=== PATIENT | male | born 1980 | race Caucasian/White ===

== ENCOUNTER 2018-06-16 01:41 | Observation (INO) ==
--- NOTE | 2018-06-16 05:42 | Emergency Department Note ---
Disposition Clinical Impression: Abdominal pain Qualifiers: Abdominal location: generalized Qualified Code(s): R10.84 - Generalized abdominal pain Disposition: Still a Patient Condition: Good Referrals: NONE,PCP [Primary Care Provider] - Alessandra Taylor [Family Provider] - Forms: ED Satisfaction Letter, Work/School Release Abdominal Pain HPI - General Chief Complaint: ED Abdominal Pain Stated Complaint: abd pain nausea Time Seen by Provider: 06/16/18 05:23 Source: patient, family - History of Present Illness HPI Narrative: This 37 years old male presented to ED for diffuse pain abdomen and low grade fever with chills since yesterday. The patient describes belly pain as a dull type of pain, 4/10, diffuse but more prominent i supra-pubic area , not associated with diarrhoea, nausea- vomiting,gurgling sound, rash, urinary frequency- dysuria. He states that the abdominal pain has been much better than yesterday and temperature is normal now.He denies any chest pain , SOB, calf pain. Pt Subjective Complaint: abdominal pain Onset (ago): day(s) Consistency: intermittent Location: suprapubic Pain Severity: mild Pain Scale: 4 Quality: aching Radiation: suprapubic Improves with: nothing Worsens with: nothing Associated symptoms: Reports: denies other symptoms, fever, chills, constipation. Denies: nausea, vomiting, diarrhea, dysuria, hematemesis, hematochezia Treatments prior to arrival: none - Related Data Allergies Allergy/AdvReac Type Severity Reaction Status Date / Time No Known Allergies Allergy Verified 06/16/18 01:45 Constitutional: Reports: fever, chills. Denies: weakness, weight change Eyes: Denies: eye pain ENT ED: Reports: ear pain Cardiovascular: Denies: chest pain, palpitations, dyspnea on exertion Respiratory: Denies: cough, dyspnea, wheezes Gastrointestinal: Reports: abdominal pain, constipation. Denies: nausea, vomiting, diarrhea, hematemesis, melena Genitourinary: Denies: urgency, dysuria, frequency Musculoskeletal: Denies: back pain, neck pain Integumentary: Denies: rash Neurological: Denies: headache, weakness, numbness Psychiatric: Denies: anxiety, depression Endocrine: Denies: fatigue Hematological/Lymphatic: Denies: easy bruising Allergic/Immunologic: Denies: urticaria Abdominal Pain PMH - Past Medical History Medical history: Reports: no medical history Male Surgical History: Reports: no surgical history Psychiatric history: Reports: no psych history - Social History Smoking status: Current every day smoker Alcohol use: Reports: occasionally Drug use: Reports: none Physical Exam - General Limitations: no limitations General appearance: alert, in no apparent distress - Head Head exam: atraumatic, normocephalic - Eye Eye exam: Present: PERRL, EOMI - ENT ENT exam: normal oropharynx, mucous membranes dry - Neck Neck exam: Present: normal inspection - Respiratory Respiratory exam: Present: normal lung sounds bilaterally. Absent: respiratory distress, wheezes, stridor, prolonged expiratory phase - Cardiovascular Cardiovascular exam: Present: normal rhythm, tachycardia, normal heart sounds, + S1, +S2. Absent: bradycardia - Abdominal Exam Abdominal exam: Present: soft, tenderness, normal bowel sounds, other (Minimal suprapubic tenderness +nt). Absent: distention, guarding - Extremities Exam Extremities exam: Absent: tenderness, pedal edema, joint swelling, calf tenderness - Back Exam Back exam: Present: normal inspection. Absent: CVA tenderness (R), CVA tenderness (L) - Neurological Exam Neurological exam: Present: alert, oriented X3 - Psychiatric Psychiatric exam: Present: normal mood. Absent: depressed, anxious - Skin Skin exam: Present: warm, intact Course Course Narrative: The patient has low grade fever and pain abdomen especially supra-pubic area , but denies any urinary symptoms.i.e Dysuria, frequency Vital Signs Temperature 102.9 F H 06/16/18 01:46 Pulse Rate 108 06/16/18 01:46 Respiratory Rate 16 06/16/18 01:46 Blood Pressure 95/55 06/16/18 01:46 O2 Sat by Pulse Oximetry 95 06/16/18 01:46 Temperature 98.8 F 06/16/18 03:28 Pulse Rate 108 06/16/18 01:46 Respiratory Rate 16 06/16/18 01:46 Blood Pressure 95/55 06/16/18 01:46 O2 Sat by Pulse Oximetry 95 06/16/18 01:46 Oxygen Delivery Oxygen Delivery Room Air Abdominal Pain - Lab Data Result diagrams: 06/16/18 05:55 06/16/18 05:55 Lab Results 06/16/18 06/16/18 06/16/18 Range/Units 05:55 05:55 06:06 WBC 23.9 H (4.3-11.1) K/mcL RBC 5.82 H (4.19-5.50) M/mcL Hgb 16.6 (12.9-16.9) g/dL Hct 50.1 (37.5-50.1) % MCV 86.1 (83.0-100.0) fL MCH 28.5 (28.0-33.3) pg MCHC 33.1 (31.6-35.5) g/dL RDW 14.6 H (11.5-14.5) % Plt Count 242 (140-400) K/mcL MPV 11.4 (9.4-12.4) fL Sodium 138 (136-145) mEq/L Potassium 3.3 L (3.5-5.1) mEq/L Chloride 104 (98-107) mEq/L Carbon Dioxide 26 (23-29) mEq/L BUN 16 (6-20) mg/dL Creatinine 1.43 H (0.70-1.30) mg/dL Est GFR ( Amer) > 60 (> 60) Est GFR (Non-Af Amer) 56 L (> 60) BUN/Creatinine Ratio 11 (6-26) Glucose 124 H (70-105) mg/dL Calculated Osmolality 289 (280-300) Calcium 9.5 (8.6-10.3) mg/dL Total Bilirubin 1.1 H (0.3-1.0) mg/dL Direct Bilirubin 0.3 H (0.0-0.2) mg/dL Indirect Bilirubin 0.8 (0.0-1.2) mg/dL AST 13 (13-39) Units/L ALT 15 (7-52) Units/L Alkaline Phosphatase 81 (34-104) Units/L Serum Total Protein 6.5 (6.4-8.9) g/dL Albumin 4.2 (3.5-5.7) g/dL Globulin 2.3 L (2.4-3.5) g/dL Albumin/Globulin Ratio 1.8 (1.1-2.2) Lipase 20 (11-82) Units/L Urine Color [place] A (Yellow) Urine Clarity Clear (Clear) Urine pH 6.0 (5.0-8.0) pH Units Ur Specific [place] > 1.030 H (1.010-1.025) Urine Protein 100 H (Neg-Trace) mg/dL Urine Glucose (UA) Normal (Normal) mg/dL Urine Ketones 15 H (Negative) mg/dL Urine Blood Negative (Negative) Urine Nitrite Negative (Negative) Urine Bilirubin Small H (Negative) Urine Urobilinogen Normal (Normal) mg/dL Ur Leukocyte Esterase Small H (Negative) Urine Microscopic RBC 0-3 (0-3) per hpf Urine Microscopic WBC 3-5 H (0-3) per hpf Ur Squamous Epith Cells Few (None-Few) per lpf Urine Bacteria Few (None-Few) per hpf Ur Culture Indicated? YES A (NO)
[2018-06-16 06:36] LABS: Hematocrit 50.1 % (37.5-50.1); Hemoglobin 16.6 g/dL (12.9-16.9); Mean Corpuscular HGB Conc 33.1 g/dL (31.6-35.5); Mean Corpuscular Hemoglobin 28.5 pg (28.0-33.3); Mean Corpuscular Volume 86.1 fL (83.0-100.0); Mean Platelet Volume 11.4 fL (9.4-12.4); Platelet Count 242 K/mcL (140-400); Red Blood Count 5.82 M/mcL (4.19-5.50); Red Cell Distribution Width 14.6 % (11.5-14.5)
[2018-06-16 06:41] LABS: Bilirubin,Urine Small (Negative); Blood,Urine Negative (Negative); Clarity,Urine Clear (Clear); Color,Urine Orange (Yellow); Glucose,Urine (UA) Normal (Normal); Ketones,Urine 15 mg/dL (Negative); Leukocyte Esterase,Urine Small (Negative); Nitrite,Urine Negative (Negative); Protein,Urine 100 mg/dL (Neg-Trace); Specific Gravity,Urine > 1.030 (1.010-1.025); Urobilinogen,Urine Normal (Normal)
[2018-06-16 06:59] LABS: Alanine Aminotransferase 15 Units/L (7-52); Albumin 4.2 g/dL (3.5-5.7); Albumin/Globulin Ratio 1.8 (1.1-2.2); Alkaline Phosphatase 81 Units/L (34-104); Aspartate Amino Transferase 13 Units/L (13-39); BUN/Creatinine Ratio 11 (6-26); Bilirubin,Direct 0.3 mg/dL (0.0-0.2); Bilirubin,Indirect 0.8 mg/dL (0.0-1.2); Bilirubin,Total 1.1 mg/dL (0.3-1.0); Blood Urea Nitrogen 16 mg/dL (6-20); Calcium 9.5 mg/dL (8.6-10.3); Carbon Dioxide 26 mEq/L (23-29); Chloride 104 mEq/L (98-107); Globulin 2.3 g/dL (2.4-3.5); Glucose 124 mg/dL (70-105); Lipase 20 Units/L (11-82); Osmolality,Calculated 289 (280-300); Potassium 3.3 mEq/L (3.5-5.1); Sodium 138 mEq/L (136-145); Total Protein 6.5 g/dL (6.4-8.9); eGFR For Non-African Americans 56 (> 60)
[2018-06-16 07:04] LABS: Squamous Epithelial Cell,Urine Few per lpf (None-Few)
[2018-06-16 07:05] LABS: RBC,Urine 0-3 per hpf (0-3)
[2018-06-16 07:06] LABS: Bacteria,Urine Few per hpf (None-Few)
--- NOTE | 2018-06-16 07:15 | Emergency Department Note ---
Disposition Clinical Impression: Abdominal pain Qualifiers: Abdominal location: generalized Qualified Code(s): R10.84 - Generalized abdominal pain Appendicitis Qualifiers: Appendicitis type: acute appendicitis Acute appendicitis type: unspecified acute appendicitis type Qualified Code(s): K35.80 - Unspecified acute appendicitis Disposition: Admitted As Inpatient Condition: Good Referrals: NONE,PCP [Primary Care Provider] - Alessandra Taylor [Family Provider] - Forms: ED Satisfaction Letter, Work/School Release Time of Disposition: 08:35 General Adult HPI - General Chief complaint: ED Abdominal Pain Stated complaint: abd pain nausea Time Seen by Provider: 06/16/18 05:23 Source: patient, family Limitations: no limitations - History of Present Illness Pain Scale: 4 - Related Data Allergies Allergy/AdvReac Type Severity Reaction Status Date / Time No Known Allergies Allergy Verified 06/16/18 01:45 Constitutional: Reports: fever, chills. Denies: weakness, weight change Eyes: Denies: eye pain ENT ED: Reports: ear pain Cardiovascular: Denies: chest pain, palpitations, dyspnea on exertion Respiratory: Denies: cough, dyspnea, wheezes Gastrointestinal: Reports: abdominal pain, constipation. Denies: nausea, vomiting, diarrhea, hematemesis, melena Genitourinary: Denies: urgency, dysuria, frequency Musculoskeletal: Denies: back pain, neck pain Integumentary: Denies: rash Neurological: Denies: headache, weakness, numbness Psychiatric: Denies: anxiety, depression Endocrine: Denies: fatigue Hematological/Lymphatic: Denies: easy bruising Allergic/Immunologic: Denies: urticaria Past Medical History - Past Medical History Medical history: Reports: no medical history Psychiatric history: Reports: no psych history - Social History Smoking Status: Current every day smoker Smokeless Tobacco Status: Yes Alcohol use: Reports: occasionally Drug use: Reports: none Physical Exam - General Limitations: no limitations General appearance: alert, in no apparent distress Course Vital Signs Temperature 102.9 F H 06/16/18 01:46 Pulse Rate 108 06/16/18 01:46 Respiratory Rate 16 06/16/18 01:46 Blood Pressure 95/55 06/16/18 01:46 O2 Sat by Pulse Oximetry 95 06/16/18 01:46 Temperature 98.8 F 06/16/18 03:28 Pulse Rate 108 10/10/18 01:46 Respiratory Rate 16 06/16/18 01:46 Blood Pressure 95/55 06/16/18 01:46 O2 Sat by Pulse Oximetry 95 06/16/18 01:46 Oxygen Delivery Oxygen Delivery Room Air Medical Decision Making - Lab Data Result diagrams: 06/16/18 05:55 06/16/18 05:55 Lab Results 06/16/18 06/16/18 06/16/18 Range/Units 05:55 05:55 06:06 WBC 23.9 H (4.3-11.1) K/mcL RBC 5.82 H (4.19-5.50) M/mcL Hgb 16.6 (12.9-16.9) g/dL Hct 50.1 (37.5-50.1) % MCV 86.1 (83.0-100.0) fL MCH 28.5 (28.0-33.3) pg MCHC 33.1 (31.6-35.5) g/dL RDW 14.6 H (11.5-14.5) % Plt Count 242 (140-400) K/mcL MPV 11.4 (9.4-12.4) fL Seg Neutrophils % 70.0 % Band Neutrophils % 8.0 H (0-4) % Lymphocytes % 12.0 % Monocytes % 6.0 % Eosinophils % 4.0 % Neutrophils # 18.6 H (1.6-8.9) K/mcL Lymphocytes # 2.9 (0.6-4.6) K/mcL Monocytes # 1.4 H (0.0-1.3) K/mcL Eosinophils # 1.0 H (0.0-0.6) K/mcL Platelet Estimate Normal (Normal) Sodium 138 (136-145) mEq/L Potassium 3.3 L (3.5-5.1) mEq/L Chloride 104 (98-107) mEq/L Carbon Dioxide 26 (23-29) mEq/L BUN 16 (6-20) mg/dL Creatinine 1.43 H (0.70-1.30) mg/dL Est GFR ( Amer) > 60 (> 60) Est GFR (Non-Af Amer) 56 L (> 60) BUN/Creatinine Ratio 11 (6-26) Glucose 124 H (70-105) mg/dL Calculated Osmolality 289 (280-300) Calcium 9.5 (8.6-10.3) mg/dL Total Bilirubin 1.1 H (0.3-1.0) mg/dL Direct Bilirubin 0.3 H (0.0-0.2) mg/dL Indirect Bilirubin 0.8 (0.0-1.2) mg/dL AST 13 (13-39) Units/L ALT 15 (7-52) Units/L Alkaline Phosphatase 81 (34-104) Units/L Serum Total Protein 6.5 (6.4-8.9) g/dL Albumin 4.2 (3.5-5.7) g/dL Globulin 2.3 L (2.4-3.5) g/dL Albumin/Globulin Ratio 1.8 (1.1-2.2) Lipase 20 (11-82) Units/L Urine Color [place] A (Yellow) Urine Clarity Clear (Clear) Urine pH 6.0 (5.0-8.0) pH Units Ur Specific [place] > 1.030 H (1.010-1.025) Urine Protein 100 H (Neg-Trace) mg/dL Urine Glucose (UA) Normal (Normal) mg/dL Urine Ketones 15 H (Negative) mg/dL Urine Blood Negative (Negative) Urine Nitrite Negative (Negative) Urine Bilirubin Small H (Negative) Urine Urobilinogen Normal (Normal) mg/dL Ur Leukocyte Esterase Small H (Negative) Urine Microscopic RBC 0-3 (0-3) per hpf Urine Microscopic WBC 3-5 H (0-3) per hpf Ur Squamous Epith Cells Few (None-Few) per lpf Urine Bacteria Few (None-Few) per hpf Ur Culture Indicated? YES A (NO) Attestation Statement - Attestation Attestation: Care of patient assumed from Dr. Sierra at 7 AM pending labs. Patient sleeping at the time of my exam. He has no focal right lower quadrant tenderness on exam. Labs reviewed by me indicating a leukocytosis and a creatinine of 1.4+. Patient states he cannot tolerate oral intake. We will offer oral fluids. Given his leukocytosis and initial fever upon presentation the patient does meet sepsis criteria. CT abdomen and pelvis ordered to evaluate for acute surgical pathology 08:34: CT results discussed with patient. Concern for acute appendicitis. Plan to discuss this case with the on-call surgeon with impending admission
--- NOTE | 2018-06-16 07:28 | Emergency Department Note ---
Disposition Clinical Impression: Abdominal pain Qualifiers: Abdominal location: generalized Qualified Code(s): R10.84 - Generalized abdominal pain Disposition: Still a Patient Condition: Good Referrals: NONE,PCP [Primary Care Provider] - Alessandra Taylor [Family Provider] - Forms: ED Satisfaction Letter, Work/School Release General Adult HPI - General Chief complaint: ED Abdominal Pain Stated complaint: abd pain nausea Time Seen by Provider: 06/16/18 05:23 Source: patient, family Limitations: no limitations Nursing Notes Reviewed: Yes Vital Signs Reviewed: Yes - History of Present Illness Pain Scale: 4 - Related Data Allergies Allergy/AdvReac Type Severity Reaction Status Date / Time No Known Allergies Allergy Verified 06/16/18 01:45 Constitutional: Reports: fever, chills. Denies: weakness, weight change Eyes: Denies: eye pain ENT ED: Reports: ear pain Cardiovascular: Denies: chest pain, palpitations, dyspnea on exertion Respiratory: Denies: cough, dyspnea, wheezes Gastrointestinal: Reports: abdominal pain, constipation. Denies: nausea, vomiting, diarrhea, hematemesis, melena Genitourinary: Denies: urgency, dysuria, frequency Musculoskeletal: Denies: back pain, neck pain Integumentary: Denies: rash Neurological: Denies: headache, weakness, numbness Psychiatric: Denies: anxiety, depression Endocrine: Denies: fatigue Hematological/Lymphatic: Denies: easy bruising Allergic/Immunologic: Denies: urticaria Past Medical History - Past Medical History Medical history: Reports: no medical history Psychiatric history: Reports: no psych history - Social History Smoking Status: Current every day smoker Smokeless Tobacco Status: Yes Alcohol use: Reports: occasionally Drug use: Reports: none Physical Exam - General Limitations: no limitations General appearance: alert, in no apparent distress Course Vital Signs Temperature 102.9 F H 06/16/18 01:46 Pulse Rate 108 06/16/18 01:46 Respiratory Rate 16 06/16/18 01:46 Blood Pressure 95/55 06/16/18 01:46 O2 Sat by Pulse Oximetry 95 06/16/18 01:46 Temperature 98.8 F 06/16/18 03:28 Pulse Rate 108 06/16/18 01:46 Respiratory Rate 16 06/16/18 01:46 Blood Pressure 95/55 06/16/18 01:46 O2 Sat by Pulse Oximetry 95 06/16/18 01:46 Oxygen Delivery Oxygen Delivery Room Air Medical Decision Making - Lab Data Result diagrams: 06/16/18 05:55 06/16/18 05:55 Lab Results 06/16/18 06/16/18 06/16/18 Range/Units 05:55 05:55 06:06 WBC 23.9 H (4.3-11.1) K/mcL RBC 5.82 H (4.19-5.50) M/mcL Hgb 16.6 (12.9-16.9) g/dL Hct 50.1 (37.5-50.1) % MCV 86.1 (83.0-100.0) fL MCH 28.5 (28.0-33.3) pg MCHC 33.1 (31.6-35.5) g/dL RDW 14.6 H (11.5-14.5) % Plt Count 242 (140-400) K/mcL MPV 11.4 (9.4-12.4) fL Sodium 138 (136-145) mEq/L Potassium 3.3 L (3.5-5.1) mEq/L Chloride 104 (98-107) mEq/L Carbon Dioxide 26 (23-29) mEq/L BUN 16 (6-20) mg/dL Creatinine 1.43 H (0.70-1.30) mg/dL Est GFR ( Amer) > 60 (> 60) Est GFR (Non-Af Amer) 56 L (> 60) BUN/Creatinine Ratio 11 (6-26) Glucose 124 H (70-105) mg/dL Calculated Osmolality 289 (280-300) Calcium 9.5 (8.6-10.3) mg/dL Total Bilirubin 1.1 H (0.3-1.0) mg/dL Direct Bilirubin 0.3 H (0.0-0.2) mg/dL Indirect Bilirubin 0.8 (0.0-1.2) mg/dL AST 13 (13-39) Units/L ALT 15 (7-52) Units/L Alkaline Phosphatase 81 (34-104) Units/L Serum Total Protein 6.5 (6.4-8.9) g/dL Albumin 4.2 (3.5-5.7) g/dL Globulin 2.3 L (2.4-3.5) g/dL Albumin/Globulin Ratio 1.8 (1.1-2.2) Lipase 20 (11-82) Units/L Urine Color [place] A (Yellow) Urine Clarity Clear (Clear) Urine pH 6.0 (5.0-8.0) pH Units Ur Specific [place] > 1.030 H (1.010-1.025) Urine Protein 100 H (Neg-Trace) mg/dL Urine Glucose (UA) Normal (Normal) mg/dL Urine Ketones 15 H (Negative) mg/dL Urine Blood Negative (Negative) Urine Nitrite Negative (Negative) Urine Bilirubin Small H (Negative) Urine Urobilinogen Normal (Normal) mg/dL Ur Leukocyte Esterase Small H (Negative) Urine Microscopic RBC 0-3 (0-3) per hpf Urine Microscopic WBC 3-5 H (0-3) per hpf Ur Squamous Epith Cells Few (None-Few) per lpf Urine Bacteria Few (None-Few) per hpf Ur Culture Indicated? YES A (NO) Attestation Statement - Attestation Attestation: I, Otis Sierra MD, personally evaluated this patient and discussed their management with the resident physician. I reviewed the resident's note and agree with the documented findings, medical decision making, and plan of care. 37-year-old male presents to the emergency department with a complaint of some generalized abdominal pain which started about 24 hours prior to arrival. He did have some nausea and 3 episodes of vomiting earlier yesterday. Also one loose stool. No melena, hematemesis, or hematochezia. No prior abdominal surgeries. No history of abdominal problems in the past. Patient states he did have a similar episode of abdominal discomfort several years ago. No dysuria or hematuria. No increased urinary frequency or flank pain. Tonight patient developed chills and decided to come be evaluated. At time of exam he states that the abdominal pain is much improved but he still feels a little crampy throughout the mid and lower abdomen. On arrival here in the emergency department his initial temp was 102.9. He received acetaminophen 1 g by mouth and repeat temperature later was down to 98.8. On examination patient is a well-developed well-nourished male in no acute distress. He is alert and oriented 3. There is no cyanosis or diaphoresis. Breath sounds are clear and equal bilaterally. Heart regular with a mild tachycardia. Abdomen is soft with increased bowel sounds. There is mild mid lower abdominal tenderness with no guarding or rebound tenderness. No CVA tenderness. No palpable organomegaly or masses. No tympany or distention. At shift change patient is awaiting lab results and is signed out to the oncoming dayshift physician, Dr. Hernandez.
[2018-06-16 07:57] LABS: Lymphocytes # 2.9 K/mcL (0.6-4.6); Monocytes # 1.4 K/mcL (0.0-1.3); Neutrophils # 18.6 K/mcL (1.6-8.9)
[2018-06-16 07:58] LABS: Platelet Estimate Normal (Normal)
[2018-06-16] MEDS ORDERED: cefOXitin 1,000 MG in 0.9 % Sodium Chloride Mini Bag 100 ML IVPB ONE ×2 (08:34→13:22)
[2018-06-16 09:18] LABS: INR 1.1; Prothrombin Time 12.5 Seconds (9.4-12.1)
[2018-06-16] MEDS ORDERED: Naloxone 0.4 MG/ML INJ IVP PRN ×2 (09:18→15:24)
[2018-06-16] MEDS ORDERED: Ondansetron 4 MG/2 ML VIAL IVP PRN ×2 (09:18→15:24)
[2018-06-16] MEDS ORDERED: OXYCODONE Oral CONC 10 MG/0.5 ML ORAL.SYG SL PRN ×2 (09:18→15:24)
[2018-06-16] MEDS ORDERED: Ketorolac 15 MG/ML VIAL IVP PRN (09:18)
--- NOTE | 2018-06-16 09:28 | General Surg History&Physical ---
<Obdulia Ortega - Last Filed: 06/16/18 10:56> Date of Encounter: 06/16/18 Time of Encounter: 09:25 Assessment and Plan (1) Appendicitis Current Visit: Yes Status: Acute WBC 23.[address] showing acute appendicitis without rupture or abscess, appendicothic noted - IVF bolus 500 then maintenance 125 - supportive care and pain management - serial abdominal exams - NPO - IV cefoxitin - consent obtained and questions answered Plan for lap appy with Dr Ashby in next 24-48 hrs The assessment and plan as outlined above was discussed with the patient and/or family members who expressed understanding and agreement. All questions were answered. Qualifiers: Appendicitis type: acute appendicitis Acute appendicitis type: unspecified acute appendicitis type Qualified Code(s): K35.80 - Unspecified acute appendicitis (2) Sepsis Current Visit: Yes Status: Acute SIRs criteria of fever, tachycardia and elevated WBC with two possible sourses in UTi and appendicitis - see above Qualifiers: Sepsis type: sepsis due to unspecified organism Qualified Code(s): A41.9 - Sepsis, unspecified organism (3) UTI (urinary tract infection) Current Visit: Yes Status: Acute UA positive for small leukocyte esterase and WBC; dark orange but no signs of hematuria with no RBS and increased specific gravity - treated with cefoxitin in ED - urine culture pending Qualifiers: Urinary tract infection type: acute cystitis Hematuria presence: without hematuria Qualified Code(s): N30.00 - Acute cystitis without hematuria (4) Tobacco dependence Current Visit: Yes Status: Chronic nicotine patch prn (5) DVT prophylaxis Current Visit: Yes Status: Acute SCDs now, plan for heparin sq starts tomorrow History of Present Illness Chief complaint: abdominal pain HPI: Mr. Lambert is a 37 year old male presented to Ed with 2 days of sharp and cramping abdominal pain with vomiting. His painstarted in epigastric region and migrated to right lower quadrant . He came to Ed after he devloped feeling of fever and chills last night. Asoicated symtpoms of headache and nausa. He has vomitied approximately three times with last yesterday afternoon. He had one episode of diarrhea small volume two days ago with no bowel moment since - he has chronic issues with constipation, no change in stool color. He also reports dark urine with concern to blood but no burning with urination. In ED, vitals T 102.9, HR 108 BP 95/55 and RR 16 95% RA. He was diagnosed with acute appendicitis and UTI - treated with IV cefoxitin. No past medical history - he occasional takes ibuprofen for back pain. He has no family hsitory of cancer in near relative, IBD or IBS. He smokes half pack over 20 yrs. He is unable to estimate his alcohol consumption on weekends perhaps 12-18 bears per week and no drinking on week days. He denies use of indict substances. No past surgical history Past Med Surg Social Fam HX - Past Medical History Medical history: no medical history Psychiatric history: no psych history - Social History Smoking Status: Current every day smoker Smokeless Tobacco Status: Yes Alcohol use: occasionally Drug use: none Medications and Allergies Acetaminophen [Tylenol] 500 mg PO TID PRN 06/16/18 [History] Ibuprofen [Ibu-200] 200 mg PO TID PRN 06/16/18 [History] 3 Allergy/AdvReac Type Severity Reaction Status Date / Time No Known Allergies Allergy Verified 06/16/18 09:07 Review of Systems All systems PM: The remainder of the systems were reviewed and are negative - Constitutional chills, fatigue, fever(s) - Cardiovascular no chest pain, no lightheadedness, no palpitations - Respiratory no cough, no dyspnea, no wheezing - Gastrointestinal abdominal pain, constipation, cramping, diarrhea, nausea, vomiting - Genitourinary hematuria, no dysuria, no urinary frequency - Musculoskeletal back pain (chronic), no muscle weakness, no numbness - Neurological dizziness, headache(s), no syncope - Psychiatric no behavioral changes, no confusion, no memory loss General Surgery Exam Initial Vital Signs Temp Pulse Resp BP Pulse Ox 102.9 F H 108 16 95/55 95 06/16/18 01:46 06/16/18 01:46 06/16/18 01:46 06/16/18 01:46 06/16/18 01:46 - General physical appearance well developed, well nourished, moderate distress - Eyes PERRL, normal ocular movement - ENT normal pinna, normal nares, no hearing loss, dry mucosa - Respiratory normal expansion, normal respiratory effort, clear to auscultation - Cardiovascular Cardiovascular exam: Present: RRR, no murmurs/rubs/gallops - Abdomen Abdomen general surgery: Present: bowel sounds present ( decreased), soft, distended, tender (potive rovsing's sign). Absent: masses, guarding, rebound, surgical scars Abdominal Tenderness: Present: RLQ (worse), diffusely Hernia: Present: none - Integumentary Integumentary general surgery: Present: warm and dry, no abnormal pigmentation. Absent: diaphoresis - Neurologic Present: CN 2-12 grossly intact, normal coordination, normal sensation - Musculoskeletal Present: normal gait, normal posture - Psychiatric Psychiatric general surgery: Present: A&Ox3, speech is normal, memory intact Results - Labs 06/16/18 05:55 06/16/18 05:55 Abnormal lab results WBC 23.9 K/mcL (4.3-11.1) H 06/16/18 05:55 RBC 5.82 M/mcL (4.19-5.50) H 06/16/18 05:55 RDW 14.6 % (11.5-14.5) H 06/16/18 05:55 Band Neutrophils % 8.0 % (0-4) H 06/16/18 05:55 Neutrophils # 18.6 K/mcL (1.6-8.9) H 06/16/18 05:55 Monocytes # 1.4 K/mcL (0.0-1.3) H 06/16/18 05:55 Eosinophils # 1.0 K/mcL (0.0-0.6) H 06/16/18 05:55 PT 12.5 Seconds (9.4-12.1) H 06/16/18 08:36 Potassium 3.3 mEq/L (3.5-5.1) L 06/16/18 05:55 Creatinine 1.43 mg/dL (0.70-1.30) H 06/16/18 05:55 Est GFR (Non-Af Amer) 56 (> 60) L 06/16/18 05:55 Glucose 124 mg/dL (70-105) H 06/16/18 05:55 Total Bilirubin 1.1 mg/dL (0.3-1.0) H 06/16/18 05:55 Direct Bilirubin 0.3 mg/dL (0.0-0.2) H 06/16/18 05:55 Globulin 2.3 g/dL (2.4-3.5) L 06/16/18 05:55 Urine Color [place] (Yellow) A 06/16/18 06:06 Ur Specific [place] > 1.030 (1.010-1.025) H 06/16/18 06:06 Urine Protein 100 mg/dL (Neg-Trace) H 06/16/18 06:06 Urine Ketones 15 mg/dL (Negative) H 06/16/18 06:06 Urine Bilirubin Small (Negative) H 06/16/18 06:06 Ur Leukocyte Esterase Small (Negative) H 06/16/18 06:06 Urine Microscopic WBC 3-5 per hpf (0-3) H 06/16/18 06:06 Ur Culture Indicated? YES (NO) A 06/16/18 06:06 Diabetes panel 06/16/18 Range/Units 05:55 Sodium 138 (136-145) mEq/L Potassium 3.3 L (3.5-5.1) mEq/L Chloride 104 (98-107) mEq/L Carbon Dioxide 26 (23-29) mEq/L BUN 16 (6-20) mg/dL Creatinine 1.43 H (0.70-1.30) mg/dL Glucose 124 H (70-105) mg/dL Calcium 9.5 (8.6-10.3) mg/dL AST 13 (13-39) Units/L ALT 15 (7-52) Units/L Alkaline Phosphatase 81 (34-104) Units/L Albumin 4.2 (3.5-5.7) g/dL Calcium panel 06/16/18 Range/Units 05:55 Calcium 9.5 (8.6-10.3) mg/dL Albumin 4.2 (3.5-5.7) g/dL Pituitary panel 06/16/18 Range/Units 05:55 Sodium 138 (136-145) mEq/L Potassium 3.3 L (3.5-5.1) mEq/L Chloride 104 (98-107) mEq/L Carbon Dioxide 26 (23-29) mEq/L BUN 16 (6-20) mg/dL Creatinine 1.43 H (0.70-1.30) mg/dL Glucose 124 H (70-105) mg/dL Calcium 9.5 (8.6-10.3) mg/dL Adrenal panel 06/16/18 Range/Units 05:55 Sodium 138 (136-145) mEq/L Potassium 3.3 L (3.5-5.1) mEq/L Chloride 104 (98-107) mEq/L Carbon Dioxide 26 (23-29) mEq/L BUN 16 (6-20) mg/dL Creatinine 1.43 H (0.70-1.30) mg/dL Glucose 124 H (70-105) mg/dL Calcium 9.5 (8.6-10.3) mg/dL Total Bilirubin 1.1 H (0.3-1.0) mg/dL AST 13 (13-39) Units/L ALT 15 (7-52) Units/L Alkaline Phosphatase 81 (34-104) Units/L Albumin 4.2 (3.5-5.7) g/dL All other labs normal. <Wilbur Ashby - Last Filed: 06/16/18 12:17> Date of Encounter: 06/16/18 History of Present Illness HPI: Mr. Lambert is a 37 year old male Review of Systems All systems PM: The remainder of the systems were reviewed and are negative General Surgery Exam Initial Vital Signs Temp Pulse Resp BP Pulse Ox 102.9 F H 108 16 95/55 95 06/16/18 01:46 06/16/18 01:46 06/16/18 01:46 06/16/18 01:46 06/16/18 01:46 Results - Labs 06/16/18 05:55 06/16/18 05:55 Abnormal lab results WBC 23.9 K/mcL (4.3-11.1) H 06/16/18 05:55 RBC 5.82 M/mcL (4.19-5.50) H 06/16/18 05:55 RDW 14.6 % (11.5-14.5) H 06/16/18 05:55 Band Neutrophils % 8.0 % (0-4) H 06/16/18 05:55 Neutrophils # 18.6 K/mcL (1.6-8.9) H 06/16/18 05:55 Monocytes # 1.4 K/mcL (0.0-1.3) H 06/16/18 05:55 Eosinophils # 1.0 K/mcL (0.0-0.6) H 06/16/18 05:55 PT 12.5 Seconds (9.4-12.1) H 06/16/18 08:36 Potassium 3.3 mEq/L (3.5-5.1) L 06/16/18 05:55 Creatinine 1.43 mg/dL (0.70-1.30) H 06/16/18 05:55 Est GFR (Non-Af Amer) 56 (> 60) L 06/16/18 05:55 Glucose 124 mg/dL (70-105) H 06/16/18 05:55 Total Bilirubin 1.1 mg/dL (0.3-1.0) H 06/16/18 05:55 Direct Bilirubin 0.3 mg/dL (0.0-0.2) H 06/16/18 05:55 Globulin 2.3 g/dL (2.4-3.5) L 06/16/18 05:55 Urine Color [place] (Yellow) A 06/16/18 06:06 Ur Specific [place] > 1.030 (1.010-1.025) H 06/16/18 06:06 Urine Protein 100 mg/dL (Neg-Trace) H 06/16/18 06:06 Urine Ketones 15 mg/dL (Negative) H 06/16/18 06:06 Urine Bilirubin Small (Negative) H 06/16/18 06:06 Ur Leukocyte Esterase Small (Negative) H 06/16/18 06:06 Urine Microscopic WBC 3-5 per hpf (0-3) H 06/16/18 06:06 Ur Culture Indicated? YES (NO) A 06/16/18 06:06 All other labs normal. - Attending Attestation I examined this patient and my medical decision-making was reviewed with the Resident Physician. I agree with the documented findings, disposition and treatment plan as described except to the extent set forth below. I reviewed the assessment and evaluation with the resident and agree with the overall plan. Patient with a 2 day history of abdominal pain that was midabdominal then radiating to the right and left lower quadrants. He admits to some nausea and vomiting and admits to history of constipation. No rectal bleeding and on examination he is most tender in the right lower quadrant. I would personally reviewed the CT scan images and report which show acute appendicitis. Agree with IV antibiotics and IV fluid (bolus given due to elevated creatinine level likely consistent with acute kidney injury) and we will proceed with laparscopic appendectomy today. Risk and benefits discussed with the patient and he agrees to the above plan.
[2018-06-16] MEDS ORDERED: Ringers Solution, Lactated 1,000 ML IVC SCH (09:30)
[2018-06-16] MEDS ORDERED: Nicotine 14 MG PATCH.TD24 TD PRN ×2 (09:32→15:24)
[2018-06-16] MEDS ORDERED: 0.9 % Sodium Chloride 1,000 ML IVC SCH ×2 (10:30)
[2018-06-16] MEDS ORDERED: 0.9 % Sodium Chloride 1,000 ML ONE (11:15)
--- NOTE | 2018-06-16 12:42 | Anesthesia Evaluation PreOp ---
Date of Encounter: 06/16/18 Time of Encounter: 13:00 - Past History Planned Operation: LAP APPENDECTOMY Cardiac History: Denies any Significant Hx Pulmonary History: Smoker [employer]IST History: Denies Any Significant HX Other Medical History: Renal (ELEVATED CREATININE WITH REDUCED GFR, HYPOKALEMIA) Alcohol Use: occasionally Drug use: none Medications and Allergies Acetaminophen [Tylenol] 500 mg PO TID PRN 06/16/18 [History] Ibuprofen [Ibu-200] 200 mg PO TID PRN 06/16/18 [History] 3 Allergy/AdvReac Type Severity Reaction Status Date / Time No Known Allergies Allergy Verified 06/16/18 09:07 - Meds/Allergy Pre-op Review Medications Reviewed: Yes Allergies Reviewed: Yes Beta Blockers on Current Med List: No Anesthesia Results - Labs 06/16/18 05:55 06/16/18 05:55 Laboratory Last Values WBC 23.9 K/mcL (4.3-11.1) H 06/16/18 05:55 RBC 5.82 M/mcL (4.19-5.50) H 06/16/18 05:55 Hgb 16.6 g/dL (12.9-16.9) 06/16/18 05:55 Hct 50.1 % (37.5-50.1) 06/16/18 05:55 MCV 86.1 fL (83.0-100.0) 06/16/18 05:55 MCH 28.5 pg (28.0-33.3) 06/16/18 05:55 MCHC 33.1 g/dL (31.6-35.5) 06/16/18 05:55 RDW 14.6 % (11.5-14.5) H 06/16/18 05:55 Plt Count 242 K/mcL (140-400) 06/16/18 05:55 MPV 11.4 fL (9.4-12.4) 06/16/18 05:55 Seg Neutrophils % 70.0 % 06/16/18 05:55 Band Neutrophils % 8.0 % (0-4) H 06/16/18 05:55 Lymphocytes % 12.0 % 06/16/18 05:55 Monocytes % 6.0 % 06/16/18 05:55 Eosinophils % 4.0 % 06/16/18 05:55 Neutrophils # 18.6 K/mcL (1.6-8.9) H 06/16/18 05:55 Lymphocytes # 2.9 K/mcL (0.6-4.6) 06/16/18 05:55 Monocytes # 1.4 K/mcL (0.0-1.3) H 06/16/18 05:55 Eosinophils # 1.0 K/mcL (0.0-0.6) H 06/16/18 05:55 Platelet Estimate Normal (Normal) 06/16/18 05:55 PT 12.5 Seconds (9.4-12.1) H 06/16/18 08:36 INR 1.1 06/16/18 08:36 Sodium 138 mEq/L (136-145) 06/16/18 05:55 Potassium 3.3 mEq/L (3.5-5.1) L 06/16/18 05:55 Chloride 104 mEq/L (98-107) 06/16/18 05:55 Carbon Dioxide 26 mEq/L (23-29) 06/16/18 05:55 BUN 16 mg/dL (6-20) 06/16/18 05:55 Creatinine 1.43 mg/dL (0.70-1.30) H 06/16/18 05:55 Est GFR ( Amer) > 60 (> 60) 06/16/18 05:55 Est GFR (Non-Af Amer) 56 (> 60) L 06/16/18 05:55 BUN/Creatinine Ratio 11 (6-26) 06/16/18 05:55 Glucose 124 mg/dL (70-105) H 06/16/18 05:55 Calculated Osmolality 289 (280-300) 06/16/18 05:55 Lactic Acid 1.1 mmol/L (0.5-2.2) 06/16/18 12:03 Calcium 9.5 mg/dL (8.6-10.3) 06/16/18 05:55 Total Bilirubin 1.1 mg/dL (0.3-1.0) H 06/16/18 05:55 Direct Bilirubin 0.3 mg/dL (0.0-0.2) H 06/16/18 05:55 Indirect Bilirubin 0.8 mg/dL (0.0-1.2) 06/16/18 05:55 AST 13 Units/L (13-39) 06/16/18 05:55 ALT 15 Units/L (7-52) 06/16/18 05:55 Alkaline Phosphatase 81 Units/L (34-104) 06/16/18 05:55 Serum Total Protein 6.5 g/dL (6.4-8.9) 06/16/18 05:55 Albumin 4.2 g/dL (3.5-5.7) 06/16/18 05:55 Globulin 2.3 g/dL (2.4-3.5) L 06/16/18 05:55 Albumin/Globulin Ratio 1.8 (1.1-2.2) 06/16/18 05:55 Lipase 20 Units/L (11-82) 06/16/18 05:55 Urine Color [place] (Yellow) A 06/16/18 06:06 Urine Clarity Clear (Clear) 06/16/18 06:06 Urine pH 6.0 pH Units (5.0-8.0) 06/16/18 06:06 Ur Specific [place] > 1.030 (1.010-1.025) H 06/16/18 06:06 Urine Protein 100 mg/dL (Neg-Trace) H 06/16/18 06:06 Urine Glucose (UA) Normal mg/dL (Normal) 06/16/18 06:06 Urine Ketones 15 mg/dL (Negative) H 06/16/18 06:06 Urine Blood Negative (Negative) 06/16/18 06:06 Urine Nitrite Negative (Negative) 06/16/18 06:06 Urine Bilirubin Small (Negative) H 06/16/18 06:06 Urine Urobilinogen Normal mg/dL (Normal) 06/16/18 06:06 Ur Leukocyte Esterase Small (Negative) H 06/16/18 06:06 Urine Microscopic RBC 0-3 per hpf (0-3) 06/16/18 06:06 Urine Microscopic WBC 3-5 per hpf (0-3) H 06/16/18 06:06 Ur Squamous Epith Cells Few per lpf (None-Few) 06/16/18 06:06 Urine Bacteria Few per hpf (None-Few) 06/16/18 06:06 Ur Culture Indicated? YES (NO) A 06/16/18 06:06 Anesthesia Exam Vital Signs/O2 Sat/Glucose, Most Recent Temp Pulse Resp BP Pulse Ox 99.1 F 101 20 100/66 99 06/16/18 11:11 06/16/18 11:11 06/16/18 11:11 06/16/18 11:11 06/16/18 11:11 HEIGHT 1.9 m WEIGHT 113 kg BMI 31 NPO (# of Hours): 8 - HEENT Mallampati: I (BEARDED) Teeth: Normal Oral Opening: Greater than 3 - Cardiac Rhythm: Regular - Pulmonary Breath Sounds: bilateral Clear Respiratory Effort: Symmetrical - Additional Findings Active INPATIENT Medications Sodium Chloride (0.9 % Sodium Chloride) 1,000 mls @ 500 mls/hr IVC .Q2H EDIL Stop: 12/16/18 10:31 Last Admin: 06/16/18 11:34 Dose: 500 mls/hr Sodium Chloride (0.9 % Sodium Chloride) 1,000 mls @ 125 mls/hr IVC .Q8H EDIL Stop: 12/16/18 10:31 Cefoxitin Sodium 1,000 mg/ (Sterile Water) 10 mls @ 300 mls/hr IVP Q8HR EDIL Stop: 12/16/18 16:01 Ketorolac Tromethamine (Toradol) 15 mg IVP Q6HR PRN PRN Reason: mild to moderate pain Stop: 06/21/18 09:19 Last Admin: 06/16/18 11:32 Dose: 15 mg Nicotine (Nicoderm) 14 mg TD DAILY PRN; Protocol PRN Reason: Agitation Stop: 12/16/18 09:46 Ondansetron HCl (Zofran) 4 mg IVP Q8HR PRN PRN Reason: Nausea And Vomiting Stop: 12/16/18 09:19 Oxycodone HCl (Oxycodone Oral Conc) 5 mg SL Q4H PRN; Protocol PRN Reason: mild to moderate pain Stop: 12/16/18 09:19 MAR Administrations Ketorolac Tromethamine (Toradol) 15 mg IVP Q6HR PRN PRN Reason: mild to moderate pain Stop: 06/21/18 09:19 Last Admin: 06/16/18 11:32 Dose: 15 mg Acetaminophen (Tylenol) 1,000 mg PO ONCE ONE Stop: 06/16/18 01:55 Last Admin: 06/16/18 02:10 Dose: 1,000 mg Cefoxitin Sodium 1,000 mg/ (Sodium Chloride) 100 mls @ 200 mls/hr IVPB ONCE ONE Stop: 06/16/18 09:03 Last Infusion: 06/16/18 09:41 Dose: 0 mls/hr Admin: 06/16/18 09:06 Dose: 200 mls/hr Anesthesia Assess/Plan ASA Score: 2, E Modified [place] Scale for Level of Consciousness: Cooperative, oriented, and tranquil Anesthetic Plan: General Monitoring Plan: Standard Monitors Recovery Plan: PACU Anes Supervising Prov Stmt: Patient informed and consented. Risks, benefits, and alternatives discussed. Patient wishes to proceed.
[2018-06-16] MEDS ORDERED: Bupivacaine/EPI 1:200k 0.5%PF 30 ML VIAL ONE (13:10)
[2018-06-16] MEDS ORDERED: Dexamethasone 4 MG/ML VIAL ONE (13:12)
[2018-06-16] MEDS ORDERED: Ondansetron 4 MG/2 ML VIAL ONE (13:12)
[2018-06-16] MEDS ORDERED: *HR* Rocuronium Bromide 50 MG/5 ML VIAL ONE ×2 (13:12→13:54)
[2018-06-16] MEDS ORDERED: Lidocaine -MPF 2% 2 ML VIAL ONE (13:12)
[2018-06-16] MEDS ORDERED: *HR* Propofol 200 MG/20 ML VIAL IVP ONE ×2 (13:12→13:44)
[2018-06-16] MEDS ORDERED: Lidocaine -MPF 4% 5 ML AMPUL ONE (13:12)
[2018-06-16] MEDS ORDERED: *HR* Succinylcholine 200 MG/10 ML VIAL IVP ONE (13:12)
[2018-06-16] MEDS ORDERED: *HR* FentaNYL (PF) 100 MCG/2 ML VIAL ONE (13:13)
[2018-06-16] MEDS ORDERED: CefOXitin 1,000 MG VIAL ONE (13:22)
[2018-06-16] MEDS ORDERED: *HR* Promethazine 25 MG/ML VIAL IVP PRN (14:04)
[2018-06-16] MEDS ORDERED: *HR* Meperidine 25 MG/ML SYRINGE IVP PRN (14:04)
[2018-06-16] MEDS ORDERED: *HR* OxyCODONE Immed Rel 5 MG TABLET PO PRN (14:04)
[2018-06-16] MEDS ORDERED: *HR* PHENYLEPHRINE 1,000 MCG/10 ML SYRINGE IVP ONE (14:09)
[2018-06-16] MEDS ORDERED: Neostigmine Methylsulfate 3 MG/3 ML SYRINGE ONE (14:16)
[2018-06-16] MEDS ORDERED: *HR* Morphine 10 MG/ML VIAL ONE (14:23)
--- NOTE | 2018-06-16 14:32 | Operative Note ---
Date of procedure: 06/16/18 Pre-op diagnosis: Acute appendicitis Post-op diagnosis: same Procedure: Laparoscopic appendectomy Anesthesia: GETA Surgeon: Wilbur Ashby Was there an construction assistant present: No Estimated blood loss (cc): 6 Specimen: appendix Condition: stable Disposition: PACU Procedure in Detail: Date of surgery: 06/16/18 After properly identifying the patient, the patient was brought to the operating room and placed in a supine position. After proper IV sedation was achieved followed by general endotracheal intubation, the patient's abdomen was prepped and draped in normal sterile fashion. A timeout was performed noting the patient's name and type of procedure to be performed. Half percent Marcaine with epinephrine was used to infiltrate the subumbilical region. An 11 blade scalpel was then used to make an incision in the area down to the rectus fascia which was also incised. A 12 mm port was placed to the incision and the abdomen was insufflated with carbon dioxide. A laparoscopic camera was placed through the port which showed no injury to the intra- abdominal organs upon entry. A suprapubic 5 mm port and a left lower quadrant 5 mm port were then placed under direct camera visualization. The patient was placed in a Trendelenburg position with the left side tilted downwards. The right lower quadrant was examined and the appendix appeared erythematous distended with drainage of exudate consistent with a ruptured appendix. The fluid around the appendix was immediately suctioned and the appendix was carefully and bluntly dissected away from its sidewall attachments. Fibrinous exudate was noted surrounding the appendix and the appendix was retracted superiorly. The base of the appendix was dissected away from the mesentery with a [place] dissector and the base of the appendix and the mesentery were transected with a laparoscopic DENNIS stapler. The appendix was removed from the abdomen via an Endobag and reinspection of the abdomen demonstrated no evidence of bleeding along the staple line. Right lower quadrant and pelvis were then copiously irrigated with normal saline solution until the effluent was clear. Reinspection of the staple line verified hemostasis and all ports were removed from the abdomen after the abdomen was desufflated. The rectus fascia for the subumbilical incision was reapproximated with a figure -of-eight 0 Vicryl suture. The subcutaneous tissue was reapproximated with 3-0 Vicryl suture and the epidermal and dermal layers for the remaining incisions were closed with 4-0 Monocryl sutures. Needle, sponge, and instrument counts were correct 2 and the incisions were covered with Steri-Strips and Band-Aids. The patient was aroused from IV sedation, extubated in the operating room without complication, and transported to the recovery room stable condition.
[2018-06-16] MEDS ORDERED: MORPHINE SUL Oral CONC 10 MG/0.5 ML ORAL.SYG SL PRN (15:24)
[2018-06-16] MEDS ORDERED: cefOXitin 1,000 MG in Water for inj. (sterile) 20 ML 10 ML IVP SCH (16:00)
[2018-06-16] MEDS: 0.9 % Sodium Chloride 1,000 ML IVC SCH (16:58)
--- NOTE | 2018-06-16 18:17 | Anesthesia Evaluation Post Op ---
Date of Encounter: 06/16/18 Time of Encounter: 15:00 - Discharge PostOp Status: Transfer Patient to floor (Patient's vital signs have been reviewed. Patient is stable postoperatively and has adequately recovered from anesthesia. Patient is determined to have stable airway patency and respiratory function including respiratory rate and oxygen saturation. Patient has a stable heart rate, blood pressure and adequate hydration. Patients mental status is acceptable. Patients temperature is appropriate. Pain and nausea are adequately controlled.)
[2018-06-16] MEDS ORDERED: Acetaminophen IV 1,000 MG/100 ML INFUS..BTL IVPB ONE (21:21)
[2018-06-16] MEDS: cefOXitin 1,000 MG in Water for inj. (sterile) 20 ML 10 ML IVP SCH (21:25)
[2018-06-17] MEDS: 0.9 % Sodium Chloride 1,000 ML IVC SCH (01:26)
[2018-06-17] MEDS: cefOXitin 1,000 MG in Water for inj. (sterile) 20 ML 10 ML IVP SCH (05:15)
[2018-06-17 05:17] LABS: Basophils % 0.1 %; Eosinophils % 0.1 %; Hematocrit 42.9 % (37.5-50.1); Immature Granulocytes % 0.8 % (0-4); Lymphocytes # 1.1 K/mcL (0.6-4.6); Lymphocytes % 7.1 %; Mean Corpuscular HGB Conc 32.6 g/dL (31.6-35.5); Mean Corpuscular Hemoglobin 28.8 pg (28.0-33.3); Mean Corpuscular Volume 88.3 fL (83.0-100.0); Mean Platelet Volume 11.7 fL (9.4-12.4); Monocytes # 0.8 K/mcL (0.0-1.3); Monocytes % 5.6 %; Neutrophils # 12.7 K/mcL (1.6-8.9); Platelet Count 179 K/mcL (140-400); Red Blood Count 4.86 M/mcL (4.19-5.50); Red Cell Distribution Width 14.6 % (11.5-14.5); Segmented Neutrophils % 86.3 %
[2018-06-17 05:39] LABS: BUN/Creatinine Ratio 17 (6-26); Blood Urea Nitrogen 17 mg/dL (6-20); Calcium 8.4 mg/dL (8.6-10.3); Carbon Dioxide 22 mEq/L (23-29); Chloride 106 mEq/L (98-107); Glucose 114 mg/dL (70-105); Osmolality,Calculated 284 (280-300); Potassium 4.1 mEq/L (3.5-5.1); Sodium 136 mEq/L (136-145); eGFR For Non-African Americans > 60 (> 60)
[2018-06-17 07:19] VITALS: BP 99/63
[2018-06-17] MEDS ORDERED: Ibuprofen 800 MG TABLET PO ONE (07:19)
[2018-06-17] MEDS ORDERED: *HR* OxyCODONE/APAP 5/325 TABLET PO PRN (07:19)
--- NOTE | 2018-06-17 07:28 | Discharge Summary ---
Date of Encounter: 06/17/18 Time of Encounter: 07:32 - Discharge Diagnosis (1) Appendicitis Priority: Primary Status: Acute Qualifiers: Appendicitis type: acute appendicitis Acute appendicitis type: unspecified acute appendicitis type Qualified Code(s): K35.80 - Unspecified acute appendicitis (2) UTI (urinary tract infection) Priority: Primary Status: Acute Qualifiers: Urinary tract infection type: acute cystitis Hematuria presence: without hematuria Qualified Code(s): N30.00 - Acute cystitis without hematuria (3) DVT prophylaxis Priority: Secondary Status: Acute (4) Tobacco dependence Priority: Secondary Status: Chronic General Surgery Exam Initial Vital Signs Temp Pulse Resp BP Pulse Ox 102.9 F H 108 16 95/55 95 06/16/18 01:46 06/16/18 01:46 06/16/18 01:46 06/16/18 01:46 06/16/18 01:46 Vital Signs Temp Pulse Resp BP Pulse Ox 06/17/18 07:17 98.0 F 71 17 99/63 97 06/17/18 04:01 98.0 F 66 16 90/55 97 06/16/18 23:11 100.2 F H 99 16 108/63 95 06/16/18 21:44 96 06/16/18 19:10 100.0 F H 92 16 108/62 96 06/16/18 17:00 98.6 F 95 16 107/70 98 06/16/18 16:30 78 16 124/74 92 06/16/18 16:00 77 16 102/67 94 06/16/18 15:38 100.0 F H 90 16 111/70 93 06/16/18 15:05 98.0 F 88 16 108/74 95 06/16/18 14:55 90 16 107/66 94 06/16/18 14:45 89 16 98/70 94 06/16/18 14:35 98.6 F 90 16 107/73 95 06/16/18 11:11 99.1 F 101 20 100/66 99 06/16/18 08:57 105 18 106/65 100 Intake and Output 06/16/18 06/16/18 06/17/18 15:59 23:59 07:59 Intake Total 100 / 100 10 / 10 1000 / 1000 Output Total 650 / 650 Balance 100 / 100 -640 / -640 1000 / 1000 Intake: IV Fluids 100 / 100 10 / 10 1000 / 1000 0.9 % Sodium Chloride 1,000 ML 1000 / 1000 @ 125 mls/hr IVC .Q8H [facility] Rx#: [id number] Mefoxin 1,000 MG In Water for inj. (sterile) 10 ML @ 300 mls/ hr IVP Q8H [facility] Rx#:[id number] Mefoxin 1,000 MG In 0.9 % 100 / 100 Sodium Chloride (Mini-Bag +) 100 ML @ 200 mls/hr IVPB ONCE ONE Rx#:[id number] Output: Urine 650 / 650 Other: Weight 112.718 kg VITAL SIGNS: Reviewed. See [facility] GENERAL: In no apparent distress. HEENT: Normocephalic, atraumatic, pupils are equal and reactive,oropharynx is pink and moist, there is no neck adenopathy or JVD noted. CHEST/RESPIRATORY: The thorax is free from signs of trauma. Lung sounds: clear to auscultation, normal respiratory effort CARDIAC: Regular rate and rhythm. Normal S1 and S2, without murmurs, gallops, or rubs. VASCULAR: No Edema. 2+ peripheral pulses. ABDOMEN: soft, expected postoperative tenderness, hypoactive bowel sounds. INCISION: Surgical incision is clean, dry, and intact. There are no signs of cellulitis or infection noted. MUSCULOSKELETAL: Good range of motion of all major joints. Extremities without clubbing, cyanosis or edema. NEUROLOGIC EXAM: Alert and oriented x 3. Speech normal. Follows commands. PSYCHIATRIC: Mood normal. SKIN: No rash or lesions. Tattoo arm sleeves noted. - Hospital Course Hospital course: Mr. Lambert is a 37 year old male who presented on 06/16/2018 with complaints of right lower quadrant pain. His white blood cell count was 23.9, CT showed acute appendicitis, he was noted to have a urinary tract infection and acute kidney injury. He was taken to the operating room where he underwent an uncomplicated laparoscopic appendectomy. His white blood cell count is down trending, creatinine has normalized, and his abdominal discomfort is well- controlled. He is ambulating avoiding without difficulty, tolerating a diet without nausea or vomiting, has been afebrile for 24 hours, vital signs are stable, and abdominal discomfort is controlled. We will begin discharge planning to home with a follow-up in the office in approximately 2 weeks. He will be discharged on 7 days of Macrobid for his UTI and 5 days of prophylactic Augmentin. He is provided an excuse for work through July 04, 2018. - Time Spent with Patient Total time spent providing and/or coordinating discharge services: - Discharge Medications Prescriptions: Ondansetron ODT [Zofran ODT] 4 mg SL Q4HR PRN #20 tab.rapdis PRN Reason: Nausea OxyCODONE/APAP 5/325 [Percocet 5/325 MG] 1 each PO Q6HR PRN 7 Days #28 tablet PRN Reason: mild-moderate pain Amoxicillin/Clavulanate [Augmentin] 500 mg PO BIDWM #10 tablet Docusate Sodium [Colace] 100 mg PO BID #30 capsule Nitrofurantoin (BID) [Macrobid] 100 mg PO BIDWM #14 capsule Phenazopyridine [Pyridium] 200 mg PO TID #21 tablet Home Medications: Amoxicillin/Clavulanate [Augmentin] 500 mg PO BIDWM #10 tablet 06/17/18 [Rx] Docusate Sodium [Colace] 100 mg PO BID #30 capsule 06/17/18 [Rx] Nitrofurantoin (BID) [Macrobid] 100 mg PO BIDWM #14 capsule 06/17/18 [Rx] Ondansetron ODT [Zofran ODT] 4 mg SL Q4HR PRN #20 tab.rapdis 06/17/18 [Rx] OxyCODONE/APAP 5/325 [Percocet 5/325 MG] 1 each PO Q6HR PRN 7 Days #28 tablet [Rx] Phenazopyridine [Pyridium] 200 mg PO TID #21 tablet 06/17/18 [Rx] Allergies/Adverse Reactions: 3 Allergy/AdvReac Type Severity Reaction Status Date / Time No Known Allergies Allergy Verified 06/16/18 09:07 Date of admission: 06/16/18 10:09 Primary care physician: PCP NONE Discharging clinician: Kiara Chino Anticipated date of discharge: 06/17/18 Labs on day of discharge: Labs from last 24 hours 06/17/18 06/17/18 06/16/18 04:42 04:42 12:03 WBC 14.7 H RBC 4.86 Hgb 14.0 D Hct 42.9 MCV 88.3 MCH 28.8 MCHC 32.6 RDW 14.6 H Plt Count 179 MPV 11.7 Immature Gran % 0.8 Seg Neutrophils % 86.3 Lymphocytes % 7.1 Monocytes % 5.6 Eosinophils % 0.1 Basophils % 0.1 Neutrophils # 12.7 H Lymphocytes # 1.1 Monocytes # 0.8 Eosinophils # 0.0 Basophils # 0.0 Sodium 136 Potassium 4.1 Chloride 106 Carbon Dioxide 22 L BUN 17 Creatinine 1.01 Est GFR ( Amer) > 60 Est GFR (Non-Af Amer) > 60 BUN/Creatinine Ratio 17 Glucose 114 H Calculated Osmolality 284 Lactic Acid 1.1 Calcium 8.4 L - Patient Status Disposition: Home, Self-Care Condition: Good Functional capacity at discharge: independent ambulation Overall status at discharge: patient is back to baseline - Discharge Instructions Instructions: How to Stop Smoking (DC), Acute Kidney Injury (DC), Cigarette Smoking and Your Health (GEN), Laparoscopic Appendectomy (DC), Urinary Tract Infection in Men (DC) Follow Up With: NONE,PCP [Primary Care Provider] - Alessandra Taylor [Family Provider] - Kiara Chino CNP [Advanced Practice Nurse] - 07/02/18 9:15 am Forms: Inpatient Work/School Release Additional Instructions: General Surgical Discharge Instructions 1. No pushing, pulling, or lifting greater than 15 lbs for 2-4 weeks (depending upon procedure). 2. You may shower beginning today, but no tub baths, soaking, or swimming for 2 weeks. 3. You may resume driving when you are off narcotics and are safe to react in a car. 4. Take ibuprofen every 8 hours for discomfort. If this does not relieve discomfort, you may take the as needed Percocet. Take narcotics as directed. Do not take more narcotics then directed and do not share your narcotics with any other person. Do not drink alcohol while on narcotics. 5. Take stool softeners (Colace) or a water based laxative (Miralax) while taking narcotics. You may hold for loose stools. 6. Report any fevers greater than 100.5F, increase abdominal discomfort, drainage that looks like pus, increased redness or pain at the surgical site, or any vomiting. 7. Report any pain in the calves, shortness of breath, or rapid heartbeat. 8. Follow-up in the office as directed. 9. If you were prescribed antibiotics, do not stop them without talking to your provider. 10. Drink plenty of fluids (at least 64 ounces daily). Take the antibiotics for your UTI as directed. You can take the Pyridium if having burning with urination. - Diet and Activity Activity: increase activity as tolerated Diet: advance to your usual diet
[2018-06-17] MEDS ORDERED: Nitrofurantoin (BID) 100 MG CAPSULE PO SCH (08:00)
[2018-06-17] MEDS ORDERED: Pantoprazole 40 MG VIAL IVP SCH (09:00)
[2018-06-17] MEDS ORDERED: *HR* Heparin 5,000 UNIT/ML VIAL SQ SCH (18:00)
== END 2018-06-17 10:31 | disposition home or self-care (01) ==
LOC: EMEROOARM 01:41 → 3BNU 01:41
PROVIDERS: ADMIT Surgery; ATTEND Surgery